=== PATIENT | female | born 1990 ===

== ENCOUNTER 2018-04-03 00:52 | Emergency (ER) | payer OTHER ==
[2018-04-03 00:57] VITALS: BP 172/109; PULSE 113; RESP 20; TEMP 97.8; O2SAT 100
[2018-04-03] MEDS ORDERED: AMOXICILLIN 250 MG CAP PO ONE (01:11)
[2018-04-03] MEDS ORDERED: AMOXICILLIN(FRIDGE) 125/5 ML BOTTLE ONE (01:17)
== END 2018-04-03 01:25 | disposition home or self-care (01) ==
LOC: ED 00:52
DX: K02.9 Dental caries, unspecified (principal)
CPT/HCPCS: 99282; 99283; A9270-GY